=== PATIENT | male | born 1950 | race Caucasian/White ===

== ENCOUNTER 2021-11-14 16:17 | Emergency (ER) | payer MEDICARE, OTHER, SELFPAY ==
[2021-11-14 16:25] VITALS: BP 182/111; PULSE 71; RESP 17; TEMP 36.6; O2SAT 100; BMI 31.1
--- NOTE | 2021-11-14 18:00 | DI.RAD.S_ITS ---
PROCEDURE: XR CHEST 1V INDICATIONS: chest pain TECHNIQUE: One view of the chest was acquired. COMPARISON: None. FINDINGS: Surgical changes and devices: None. Lungs and pleura: Lungs are clear. No pleural effusions or pneumothorax. Left basilar atelectasis. Mediastinum: Mediastinal contours appear normal. Heart size is normal. The aorta is tortuous. Bones and chest wall: No suspicious bony lesions. Overlying soft tissues appear unremarkable. IMPRESSION: Left basilar atelectasis. No acute abnormality. Dictated by: Brandon Higgins M.D. on 11/14/2021 at 18:55 Approved by: Brandon Higgins M.D. on 11/14/2021 at 18:56
[2021-11-14 18:10] VITALS: BP 192/107; PULSE 62; RESP 20; TEMP 37.1; O2SAT 99
--- NOTE | 2021-11-14 18:13 | PC.NURSE ---
pt requests to speak to the MD prior to additional testing such as EKG and blood wk. Pt states his PCP recommended to come to the ER as he was unable to be seen at the office. Recent change in dose of meds for HTN has been unsuccessful
--- NOTE | 2021-11-14 18:31 | ED_ITS ---
HPI - General Adult General Chief complaint: Hypertension Stated complaint: High blood pressure Time Seen by Provider: 11/14/21 17:59 Source: patient Mode of arrival: Ambulatory History of Present Illness HPI narrative: 71-year-old male. Recent diagnosis of hypertension. Has been on losartan for less than 1 week. Has been going daily to the local drug store in order to check his blood pressure. It has been in the 160s to 180s systolic. Initially he went to go see his primary doctor because he was having some vision disturbances. Has found that he was hypertensive which is why he was started on the antihypertensive medication. He stated that he started to have those vision disturbances today. [facility] blood pressure was greater than 100 and he was told that if that happened he needed to come to the emergency department. He is no chest pain. No headache. No shortness of breath. No lower extremity swelling. Related Data Home Medications Medication Instructions Recorded Confirmed losartan 100 mg tablet 100 mg PO DAILY 11/14/21 11/14/21 Allergies Allergy/AdvReac Type Severity Reaction Status Date / Time No Known Drug Allergies Allergy Verified 11/14/21 16:27 Review of Systems Review of Systems ROS Unobtainable: All systems reviewed & are unremarkable except as noted in HPI and below Constitutional Constitutional: Denies fever(s) and Denies headache(s) Eyes Eyes: Reports system reviewed and no additional complaints, except as documented ENT Ears, Nose, Mouth, and Throat: Denies headache(s) Cardiovascular Cardiovascular: Reports system reviewed and no additional complaints, except as documented Respiratory Respiratory: Reports system reviewed and no additional complaints, except as documented Gastrointestinal Gastrointestinal: Reports system reviewed and no additional complaints, except as documented Neurologic Neurologic: Denies headache(s) Hematologic/Lymphatic On Anticoagulants: No Patient History Medical History Hypertension Social History Smoking Status: Never smoker Smoking Status: Never smoker alcohol intake frequency: a few times a week Substance Use Type: does not use Exam Initial Vital Signs Initial Vital Signs: Vital Signs Temperature 97.8 F 11/14/21 16:25 Pulse Rate 71 11/14/21 16:25 Respiratory Rate 17 11/14/21 16:25 Blood Pressure 182/111 H 11/14/21 16:25 Pulse Oximetry 100 11/14/21 16:25 Oxygen Delivery Method 11/14/21 16:25 HENMT Head: normal to inspection and normocephalic Resp Effort & Inspection: normal respiratory effort Auscultation: clear to auscultation bilaterally Cardio Rate: regular rate Rhythm: regular rhythm GI Inspection: normal to inspection Skin General: no rashes or lesions noted Neuro General: patient alert, patient awake, patient oriented x3 and moves all extremities Extrem General: No edema Psych Appearance: grossly normal Course Orders Ordered: ED Orders 11/14/21 18:00 XR chest 1V Stat Vital Signs Vital signs: Vital Signs - 8 hr 11/14/21 16:25 11/14/21 18:10 Temperature 97.8 F 98.7 F Pulse Rate 71 62 Respiratory Rate 17 20 Blood Pressure 182/111 H 192/107 H Pulse Oximetry 100 99 Oxygen Delivery Method Room Air Room Air Medical Decision Making Imaging Data Chest x-ray: Radiologist's Impression: [address] [address] XRay Report Signed Patient: Emiliano Temple MR#: [id number] : 1950 Acct:[id number] Age/Sex: 71 / M Date of Service: 11/14/21 Loc: ED Accession Number: [id number] ?? Procedure: XR chest 1V Ordering Provider: Isreal Banerjee D.O. PROCEDURE:? XR CHEST 1V ? INDICATIONS:? chest pain ? TECHNIQUE:? One view of the chest was acquired.? ? COMPARISON:? None. ? FINDINGS:? ? Surgical changes and devices:? None.? ? Lungs and pleura:? Lungs are clear.? No pleural effusions or pneumothorax.? Left basilar atelectasis. ? Mediastinum:? Mediastinal contours appear normal.? Heart size is normal.? The aorta is tortuous. ? Bones and chest wall:? No suspicious bony lesions.? Overlying soft tissues appear unremarkable.? ? IMPRESSION:? Left basilar atelectasis.? No acute abnormality. ? ? Dictated by: Brandon Higgins M.D. on 11/14/2021 at 18:55 ? ? Approved by: Brandon Higgins M.D. on 11/14/2021 at 18:56?? MDM Narrative Medical decision making narrative: Patient would like to hold on any further workup except for the chest x-ray. Patient is currently asymptomatic. Had a discussion regarding his blood pressure. Advised that he should purchase a blood pressure cuff so that he could take his blood pressure at home as the drug store blood pressure monitors are routinely inaccurate. He will record his blood pressures as well. Given the fact he is only been on medications for less than 1 week we will hold on changing anything for now. No fevers. Low suspicion for ACS or CHF. Patient was given return precautions. Expressed understanding and agreement. Discharge Plan Departure Patient Disposition: Home Clinical Impression: Hypertension Instructions: DI for High Blood Pressure Activity Restrictions/Additional Instructions: I recommend that you continue to take her blood pressure medication as directed had tomorrow contact your primary doctor for a follow-up. I also recommend that he purchase a blood pressure cuff and start taking it at home like we discussed. Return to the emergency department for any new or worsening symptoms. Prescriptions: No Action losartan 100 mg Tablet 100 mg PO DAILY Referrals: Nghia Rodríguez MD [Primary Care Provider] - Visit Report Forms: Patient Portal/API
== END 2021-11-14 18:42 | disposition home or self-care (01) ==
PROVIDERS: Emergency Provider Emergency Medicine; Family Provider Family Medicine; PCP Family Medicine
DX: I10 Essential (primary) hypertension (principal); R07.9 Chest pain, unspecified
CPT/HCPCS: 71045; 99281; 99283

== ENCOUNTER → 2022-02-05 09:08 | Outpatient (CLI) | payer MEDICARE, OTHER, SELFPAY ==
[2022-02-05 10:18] LABS: Influenza A - CEPHEID Flu A NEGATIVE (NEGATIVE); Influenza B - CEPHEID Flu B NEGATIVE (NEGATIVE); Respiratory Syncytial Virus Negative (Negative)
[2022-02-05 10:19] LABS: COVID-19 CEPHEID 4-PLEX PCR Negative (Negative)
== END ==
PROVIDERS: Family Provider Family Medicine; PCP Family Medicine; Visit Provider Physician Assistant Medical
DX: R05.1 Acute cough (principal); R06.2 Wheezing
CPT/HCPCS: 0241U

== ENCOUNTER → 2024-04-03 10:09 | Outpatient (CLI) | payer MEDICARE, OTHER, SELFPAY ==
--- NOTE | 2024-04-03 | DI.RAD.S_ITS ---
PROCEDURE: XR KNEE RT 3V INDICATIONS: chronic right knee pain TECHNIQUE: 3 views of the knee were acquired. COMPARISON: [facility], , KNEE 3V RIGHT, 08/26/2015, 12:29. FINDINGS: Bones: No fractures or dislocations. No suspicious bony lesions. Tricompartmental joint space narrowing with associated osteophytosis. Subchondral cystic change and early bony deformity of all compartments. Soft tissues: No joint effusion. No suspicious soft tissue calcifications. IMPRESSION: Severe tricompartmental osteoarthritis. Kellgren-Lee Grade 3. This has progressed from prior. Dictated by: Carlos Juárez M.D. on 04/03/2024 at 15:27 Approved by: Carlos Juárez M.D. on 04/03/2024 at 15:29
== END ==
PROVIDERS: Family Provider Family Medicine; PCP Family Medicine; Referring Provider Family Medicine; Visit Provider Family Medicine
DX: M25.561 Pain in right knee (principal); G89.29 Other chronic pain; M17.11 Unilateral primary osteoarthritis, right knee
CPT/HCPCS: 73562